=== PATIENT | male | born 1980 | race American Indian/Alaskan Native ===

== ENCOUNTER 2016-07-25 22:02 | Emergency (ER) | payer SELFPAY ==
[2016-07-26] MEDS ORDERED: MOTRIN PO ONE (01:15)
--- NOTE | 2016-07-26 01:57 | Emergency Department Report ---
ED Headache HPI - General Chief Complaint: Headache Stated Complaint: HEADACHE, NAUSEA, DIZZINESS Time Seen by Provider: 07/26/16 01:56 Source: patient, family Exam Limitations: no limitations - History of Present Illness Initial Comments: Assessment presents to emergency room with headache that started yesterday. He said he has increased throats. He denies any dizziness, head injury he said he is concerned about his blood pressure. Patient took Tylenol with no relief. She was given Motrin in triage area and he said his pain went down from 8 out of 10 to a 6 out of 10. Patient denies any nausea vomiting, neck pain or stiffness or fever/chills. Denies any abdominal or back pain. Denies any chest pain or shortness of breath. As he doesn't have a primary care physician and he supposed be takinglast and hydrochlorothiazide and he has not taken for 1 month now. blood Pressure in triage is 153/111. He said he's been having frequent headaches over the last month since he ran out of his blood pressure medication.Denies any change in vision. Timing/Duration: waxing and waning, other (This morning) Quality: severe (8/10) Head Injury Location: frontal Recent Head Trauma: frequent headaches (out of bp meds for awhile) Associated Symptoms: denies: confusion, fatigue, facial pain, fever/chills, flushing, loss of consciousness, nausea/vomiting (it was reported on triage note the patient was having nausea the patient said he is not having any nausea and she did not vomit.), nasal congestion, nasal drainage, numbness in legs/feet , rash, seizures, sinus infection, stiff neck, vision changes, weakness Allergies/Adverse Reactions: Allergies No Known Allergies Allergy (Unverified 07/25/16 22:39) Home Medications: Ambulatory Orders Hydrochlorothiazide [Hctz] 12.5 mg PO QDAY #30 capsule 07/26/16 amLODIPine [Norvasc] 10 mg PO DAILY #30 tab 07/26/16 ED Review of Systems ROS: Stated complaint: HEADACHE, NAUSEA, DIZZINESS Other details as noted in HPI Comment: All other systems reviewed and negative Constitutional: denies: chills, fever ENT: denies: throat pain, congestion Respiratory: no symptoms reported Cardiovascular: denies: chest pain, palpitations, edema, syncope Gastrointestinal: denies: abdominal pain, nausea, vomiting Genitourinary: denies: urgency, dysuria, frequency, hematuria Musculoskeletal: denies: back pain, arthralgia, myalgia Skin: denies: rash Neurological: headache. denies: weakness, numbness, paresthesias, confusion, abnormal gait, vertigo ED Past Medical Hx - Past Medical History Previous Medical History?: Yes Hx Hypertension: Yes - Surgical History Past Surgical History?: No - Family History Family history: hypertension - Social History Smoking Status: Current Some Day Smoker Substance Use Type: None - Medications Home Medications: Home Medications Medication Instructions Recorded Confirmed Last Taken Type Hydrochlorothiazide [Hctz] 12.5 mg PO QDAY #30 capsule 07/26/16 Unknown Rx amLODIPine [Norvasc] 10 mg PO DAILY #30 tab 07/26/16 Unknown Rx ED Physical Exam - General Limitations: No Limitations General appearance: alert, in no apparent distress - Head Head exam: Present: atraumatic, normocephalic, normal inspection - Expanded Head Exam Expanded Head exam: Absent: laceration, abrasion, contusion, hematoma, racoon eyes, webber's sign, general tenderness, tenderness of temporal artery, CSF rhinorrhea , CSF otorrhea - Eye Eye exam: Present: normal appearance, PERRL, EOMI. Absent: nystagmus, periorbital swelling, periorbital tenderness Pupils: Present: normal accommodation, other (Peripheral vision is normal) - ENT ENT exam: Present: normal exam, normal orophraynx, mucous membranes moist, TM's normal bilaterally, normal external ear exam - Neck Neck exam: Present: normal inspection, full ROM. Absent: tenderness, meningismus, lymphadenopathy - Expanded Neck Exam Expanded Neck exam: Absent: tenderness, midline deformity, anterior neck swelling, carotid bruit, tracheal deviation - Respiratory Respiratory exam: Present: normal lung sounds bilaterally. Absent: respiratory distress, wheezes, rales, rhonchi, stridor, chest wall tenderness - Cardiovascular Cardiovascular Exam: Present: regular rate, normal rhythm, normal heart sounds - GI/Abdominal GI/Abdominal exam: Present: soft, normal bowel sounds. Absent: distended, tenderness, guarding, rebound, rigid - Extremities Exam Extremities exam: Present: normal inspection, full ROM, normal capillary refill. Absent: tenderness, pedal edema, joint swelling, calf tenderness - Back Exam Back exam: Present: normal inspection, full ROM. Absent: tenderness, CVA tenderness (R), CVA tenderness (L), muscle spasm, paraspinal tenderness, vertebral tenderness, rash noted - Neurological Exam Neurological exam: Present: alert, oriented X3, normal gait, motor sensory deficit. Absent: reflexes normal - Expanded Neurological Exam Expanded Neurological exam: Absent: innattentive, memory loss-remote event, memory loss- recent event, ataxia, receptive aphasia, expressive aphasia, total aphasia, tremor, protecting the airway Patient oriented to: Present: person, place, time Speech: Present: fluid speech Cranial nerves: EOM's Intact: Normal, Gag Reflex: Normal, Tongue Deviation: Normal, Nystagmus: Normal, Facial Sensation: Normal Cerebellar function: Romberg: Normal Upper motor neuron: Pronator Drift: Normal, Sensory Extinction: Normal Sensory exam: Upper Extremity Light Touch: Normal, Upper Extremity Temperature: Normal, UE 2 Point Discrimination: Normal, Lower Extremity Light Touch: Normal, Lower Extremity Temperature: Normal, LE 2 Point Discrimination: Normal Motor strength exam: RUE: 5, LUE: 5, RLE: 5, LLE: 5 DTR: bicep (R): 2+, bicep (L): 2+, tricep (R): 2+, tricep (L): 2+, knee (R): 2+ , knee (L): 2+, ankle (R): 2+, ankle (L): 2+ Best Eye Response (Veronika): (4) open spontaneously Best Motor Response (Veronika): (6) obeys commands Best Verbal Response ([place]): (5) oriented [place] Total: 15 - Psychiatric Psychiatric exam: Present: normal affect, normal mood - Skin Skin exam: Present: warm, dry, intact, normal color. Absent: rash ED Course Vital Signs 07/25/16 07/26/16 07/26/16 22:23 01:09 02:50 Temperature 98.2 F Pulse Rate 64 65 61 Respiratory 18 18 18 Rate Blood Pressure 153/111 141/101 Blood Pressure 153/111 157/108 [Left] O2 Sat by Pulse 100 98 100 Oximetry 07/26/16 07/26/16 02:56 03:15 Temperature Pulse Rate Respiratory Rate Blood Pressure 157/108 Blood Pressure 159/112 [Left] O2 Sat by Pulse Oximetry Vital Signs 07/25/16 07/26/16 07/26/16 22:23 01:09 02:50 Temperature 98.2 F Pulse Rate 64 65 61 Respiratory 18 18 18 Rate Blood Pressure 153/111 141/101 Blood Pressure 153/111 157/108 [Left] O2 Sat by Pulse 100 98 100 Oximetry 07/26/16 07/26/16 07/26/16 02:56 03:15 04:27 Temperature Pulse Rate 61 Respiratory 18 Rate Blood Pressure 157/108 Blood Pressure 159/112 139/100 [Left] O2 Sat by Pulse 100 Oximetry - Reevaluation(s) Reevaluation #1: 07/26/16 04:28 given Motrin 800 mg in triage which did not relieve his headache completely. I gave him Tylenol 3 2 tablets and clonidine 0.1 mg and his blood pressure is now 139/100 and he said his headache is relieved. 07/26/16 04:31 ED Medical Decision Making - Medical Decision Making ED course:given Motrin 800 mg in triage which did not relieve his headache completely. I gave him Tylenol 3 2 tablets and clonidine 0.1 mg and his blood pressure is now 139/100 and he said his headache is relieved. Pt only had headache on and off for one month because he said his blood pressure is elevated at is out of his blood pressure medication. Patient reports that he take Norvasc 10 mg and HCTZ 12.5 mg daily. Neurological exam is intact. Patient stable and discharged home to follow-up with [facility] to manage chronic Hypertension. Patient given prescription for Norvasc and hydrochlorothiazide. Critical care attestation.: If time is entered above; I have spent that time in minutes in the direct care of this critically ill patient, excluding procedure time. ED Disposition Clinical Impression: Noncompliance with medication regimen, Encounter for smoking cessation counseling Hypertension Qualifiers: Hypertension type: essential hypertension Qualified Code(s): I10 - Essential ( primary) hypertension Acute headache Qualifiers: Headache type: unspecified Intractability: not intractable Qualified Code(s): R51 - Headache Disposition: DISCHARGED TO HOME OR SELFCARE Is pt being admited?: No Does the pt Need Aspirin: No Condition: Stable Instructions: Hypertension (ED), Acute Headache (ED), Low Sodium Diet (ED), DASH Eating Plan (ED), Heart Healthy Diet (ED), How to Stop Smoking (ED) Additional Instructions: Please follow discharge instruction and high blood pressure and lifestyle modification. Increase her fluid intake to 2-3 L a day. Keep log of your Blood pressure and called [facility] to schedule up appointment for follow-up visit elevated blood pressure. Here headache return, dizziness, pain, shortness of breath him a nausea and vomiting and blurred vision please return to the emergency room AMADEO. That blood pressure medication as prescribed Prescriptions: amLODIPine [Norvasc] 10 mg PO DAILY #30 tab Hydrochlorothiazide [Hctz] 12.5 mg PO QDAY #30 capsule Referrals: [facility] [Outside] - 2-3 Days Forms: Work/School Release Form(ED), Accompanied Note
[2016-07-26] MEDS ORDERED: CATAPRES PO ONE (02:51)
[2016-07-26] MEDS ORDERED: TYLENOL #3 PO ONE (02:51)
[2016-07-26 04:28] VITALS: BP 139/100
== END 2016-07-26 05:05 | disposition home or self-care (01) ==
LOC: ED 22:02
DX: I10 Essential (primary) hypertension (principal); R51 Headache; Z91.14 Patient's other noncompliance with medication regimen; F17.200 Nicotine dependence, unspecified, uncomplicated
CPT/HCPCS: 99283

== ENCOUNTER 2016-11-14 17:17 | Emergency (ER) | payer OTHER ==
[2016-11-14] MEDS ORDERED: NORCO 5/325 PO ONE (20:29)
[2016-11-14] MEDS ORDERED: FLEXERIL PO ONE (20:29)
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
[2016-11-14 22:02] VITALS: BP 123/77
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
== END 2016-11-14 22:20 | disposition home or self-care (01) ==
LOC: ED 17:17
DX: S16.1XXA Strain of muscle, fascia and tendon at neck level, initial encounter (principal); G44.319 Acute post-traumatic headache, not intractable; M54.6 Pain in thoracic spine; V49.49XA Driver injured in collision with other motor vehicles in traffic accident, initial encounter; X58.XXXA Exposure to other specified factors, initial encounter; Y93.9 Activity, unspecified; Y92.9 Unspecified place or not applicable; Y99.9 Unspecified external cause status; F17.200 Nicotine dependence, unspecified, uncomplicated
CPT/HCPCS: 70450; 72125; 99283